=== PATIENT | female | born 1995 | race American Indian/Alaskan Native ===

== ENCOUNTER 2017-06-22 20:11 | Emergency (ER) | payer MEDICAID, MEDICARE ==
[2017-06-22 21:00] LABS: Basophils % (Auto) 1.1 % (0.0-1.8); Eosinophils % (Auto) 1.5 % (0.0-4.3); Hemoglobin 12.3 gm/dl (10.1-14.3); Mean Corpuscular HGB Conc 34 % (30-34); Mean Corpuscular Hemoglobin 34 pg (28-32); Mean Corpuscular Volume 98 fl (79-97); Platelet Count 216 K/mm3 (140-440); Red Blood Count 3.66 M/mm3 (3.65-5.03); Red Cell Distribution Width 12.7 % (13.2-15.2); White Blood Count 6.7 K/mm3 (4.5-11.0)
[2017-06-22 21:13] LABS: Anion Gap 18 mmol/L; Blood Urea Nitrogen 16 mg/dL (7-17); Calcium 9.6 mg/dL (8.4-10.2); Carbon Dioxide 24 mmol/L (22-30); Chloride 101.8 mmol/L (98-107); Glucose 93 mg/dL (65-100); Sodium 140 mmol/L (137-145)
--- NOTE | 2017-06-22 22:49 | Emergency Department Report ---
ED Anxiety HPI - General Chief Complaint: Chest Pain Stated Complaint: HEART BEATING FAST Time Seen by Provider: 06/22/17 22:09 Source: patient Mode of arrival: Ambulatory - History of Present Illness Initial Comments: This is a 22-year-old female nontoxic, well nourished in appearance, no acute signs of distress with ED complaining of palpitation 2 days. Patient denies any chest pain, nausea, vomiting, diaphoresis, fever, chills, stiff neck, headache, shortness of breath. Patient stated she saw her primary care doctor 2 weeks ago for similar symptoms and was diagnosed with anxiety and vitamin D deficiency. Her primary care doctor prescribed her vitamin D 50,000 IU. Patient's cousins, the bedside. Patient stated her parents have at age of 13 and since then she's been very anxious with intermittent palpitations. Currently during examination patient denies any palpitations and stated she is wants to be evaluated for the symptoms. Patient denies any past medical history besides depression and PTSD. Patient stated she is currently follow-up with a psychiatrist this Tuesday. Patient denies any suicidal or homicidal thoughts. Patient states allergies to penicillin. Patient stated she been taking Zoloft that has been helping her with anxiety and palpitations but patient stated she hasn't been taking it for months and symptoms has recurred. Patient stated she developed these symptoms when she started taking her past history. Patient denies currently being depressed. Complaint: anxiety, heart racing -: Gradual, days(s) (2) Place: home Previous History of Same: Yes Severity: mild Quality: intermittant Provoking factors: emotional stress, recent /illness of f Improves With: medication Worsens With: thinking about event Associated symptoms: palpitations. denies: chest pain, shortness of breath, diaphoresis, denies other symptoms, confusion, cough, fever/chills, headaches, anorexia, malaise, nausea/vomiting, rash, seizure, syncope, weakness - Related Data Allergies/Adverse Reactions: Allergies Allergy/AdvReac Type Severity Reaction Status Date / Time Penicillins Allergy Rash Verified 02/05/14 05:51 ED Review of Systems ROS: Stated complaint: HEART BEATING FAST Other details as noted in HPI Constitutional: denies: chills, fever Eyes: denies: eye pain, eye discharge, vision change ENT: denies: ear pain, throat pain Respiratory: denies: cough, shortness of breath, wheezing Cardiovascular: denies: chest pain, palpitations Endocrine: no symptoms reported Gastrointestinal: denies: abdominal pain, nausea, diarrhea Genitourinary: denies: urgency, dysuria, discharge Musculoskeletal: denies: back pain, joint swelling, arthralgia Skin: denies: rash, lesions Neurological: denies: headache, weakness, paresthesias Psychiatric: denies: anxiety, depression Hematological/Lymphatic: denies: easy bleeding, easy bruising ED Past Medical Hx - Past Medical History Previous Medical History?: Yes Hx Psychiatric Treatment: Yes (ptsd, depressive disorder) Additional medical history: VITD DEFFICIENCY - Surgical History Past Surgical History?: Yes Additional Surgical History: bilateral foot surgery - arch - Social History Smoking Status: Never Smoker Substance Use Type: None ED Physical Exam - General Limitations: No Limitations General appearance: alert, in no apparent distress - Head Head exam: Present: atraumatic, normocephalic, normal inspection - Eye Eye exam: Present: normal appearance, PERRL, EOMI. Absent: scleral icterus, conjunctival injection, nystagmus, periorbital swelling, periorbital tenderness Pupils: Present: normal accommodation - ENT ENT exam: Present: normal exam, normal orophraynx, mucous membranes moist, TM's normal bilaterally, normal external ear exam - Neck Neck exam: Present: normal inspection, full ROM. Absent: tenderness, meningismus, lymphadenopathy, thyromegaly - Respiratory Respiratory exam: Present: normal lung sounds bilaterally. Absent: respiratory distress, wheezes, rales, rhonchi, stridor, chest wall tenderness, accessory muscle use, decreased breath sounds, prolonged expiratory - Cardiovascular Cardiovascular Exam: Present: regular rate, normal rhythm, normal heart sounds. Absent: systolic murmur, diastolic murmur, rubs, gallop - GI/Abdominal GI/Abdominal exam: Present: soft, normal bowel sounds. Absent: distended, tenderness, guarding, rebound, rigid, diminished bowel sounds - Rectal Rectal exam: Present: deferred - Extremities Exam Extremities exam: Present: normal inspection, full ROM, normal capillary refill. Absent: tenderness, pedal edema, joint swelling, calf tenderness - Back Exam Back exam: Present: normal inspection, full ROM. Absent: tenderness, CVA tenderness (R), CVA tenderness (L), muscle spasm, paraspinal tenderness, vertebral tenderness, rash noted - Neurological Exam Neurological exam: Present: alert, oriented X3, CN II-XII intact, normal gait, reflexes normal - Psychiatric Psychiatric exam: Present: normal affect, normal mood, anxious. Absent: depressed, agitated, flat affect, manic, homicidal ideation, suicidal ideation - Skin Skin exam: Present: warm, dry, intact, normal color. Absent: rash ED Course Vital Signs 06/22/17 06/22/17 20:23 22:01 Temperature 98.6 F Pulse Rate 95 H 87 Respiratory 22 Rate Blood Pressure 115/68 O2 Sat by Pulse 99 Oximetry - Reevaluation(s) Reevaluation #1: 06/22/17 22:50 Patient is speaking in full sentences with no signs of distress noted. ED Medical Decision Making - Lab Data Result diagrams: 06/22/17 20:32 06/22/17 20:32 - Medical Decision Making His records; this is a 22-year-old female that presents with anxiety and palpitation Patient was examined myself. Patient is stable. CBC, BMP, troponin, hCG, chest x-ray and EKG has been obtained old with normal findings with no abnormalities. Patient was notified of labs, chest x-ray and EKG with no further questions noted by the patient. I instructed patient to follow up with psychiatrist/primary care doctor appointment or symptoms such as suicidal medication, homicidal medication, depression, chest pain, shortness of breath, or worsening symptoms return to emergency room as soon as possible. I educated patient on how to calm herself down during episodes of anxiety. At time time of discharge, the patient does not seem toxic or ill in appearance. No acute signs of distress noted. Patient agrees to discharge treatment plan of care. No further questions noted by the patient. Critical care attestation.: If time is entered above; I have spent that time in minutes in the direct care of this critically ill patient, excluding procedure time. ED Disposition Clinical Impression: Anxiety, Palpitations Disposition: -01 TO HOME OR SELFCARE Is pt being admited?: No Does the pt Need Aspirin: No Condition: Stable Instructions: Anxiety (ED), Palpitations (ED) Additional Instructions: follow up with psychiatrist/primary care doctor appointment or symptoms such as suicidal medication, homicidal medication, depression, chest pain, shortness of breath, or worsening symptoms return to emergency room as soon as possible. Referrals: PRIMARY CARE, [Primary Care Provider] - 3-5 Days SATISH JOHN MD [Staff Physician] - 3-5 Days [facility] [Outside] - 3-5 Days [facility] [Outside] - 3-5 Days Forms: Work/School Release Form(ED)
--- NOTE | 2017-06-22 23:16 | XRay Report ---
FINAL REPORT EXAM: XR CHEST ROUTINE 2V HISTORY: chest pain TECHNIQUE: Two view chest PA and lateral PRIORS: None. FINDINGS: Cardiac and mediastinal contours are unremarkable. No focal pulmonary infiltrate is identified. No pleural fluid collection seen. Pulmonary vasculature is unremarkable. IMPRESSION: Negative two-view chest
[2017-06-22 23:25] VITALS: BP 114/70
[2017-06-23 00:10] LABS: Bacteria,Urine 1+ /HPF (Negative); Bilirubin,Urine NEG (Negative); Blood,Urine NEG (Negative); Ketones,Urine NEG (Negative); Leukocyte Esterase,Urine NEG (Negative); Mucus,Urine 2+ /HPF; Nitrite,Urine NEG (Negative); Protein,Urine <15 mg/dL mg/dL (Negative); Urobilinogen,Urine < 2.0 mg/dL (<2.0)
== END 2017-06-22 23:39 | disposition home or self-care (01) ==
LOC: ED 20:11
DX: F41.9 Anxiety disorder, unspecified (principal); F32.9 Major depressive disorder, single episode, unspecified; Z88.0 Allergy status to penicillin
CPT/HCPCS: 36415; 71020; 80048; 81001; 84484; 84703; 85025; 93005; 93010; 99284